=== PATIENT | female | born 1990 | race American Indian/Alaskan Native ===

== ENCOUNTER 2022-01-02 07:29 | Emergency (ER) | payer SELFPAY ==
[2022-01-02 08:02] VITALS: BP 108/65
--- NOTE | 2022-01-02 09:17 | Emergency Department Report ---
ED General Adult HPI - General Chief complaint: Extremity Problem,Nontraumatic Stated complaint: B/L KNEE PAIN CANT BEND HAD KNEE SURGERY Time Seen by Provider: 01/02/22 08:47 Source: patient Mode of arrival: Ambulatory Limitations: No Limitations - History of Present Illness Initial comments: 31-year-old female past medical history bilateral knee surgeries. Reports to the ER with complaints of bilateral knee pain with swelling with limited range of motion. Patient reports running yesterday and doing other errands. Patient reports he is unable to bend her knees fully since this morning. Patient denies any acute injury to her knees recently. No other acute signs or symptoms reported. Severity scale (0 -10): 10 - Related Data Previous Rx's Medication Instructions Recorded Last Taken Type Acetaminophen/Codeine [Tylenol 1 tab PO Q6H PRN 2 Days #8 tab 01/02/22 Unknown Rx /Codeine # 3 tab] methOCARBAMOL [Robaxin TAB] 500 mg PO Q12H PRN 7 Days #14 tab 01/02/22 Unknown Rx ED Review of Systems ROS: Stated complaint: B/L KNEE PAIN CANT BEND HAD KNEE SURGERY Other details as noted in HPI Comment: All other systems reviewed and negative Musculoskeletal: joint swelling (Bilateral knees) ED Past Medical Hx - Past Medical History Previous Medical History?: No - Medications Home Medications: Home Medications Medication Instructions Recorded Confirmed Last Taken Type Acetaminophen/Codeine [Tylenol 1 tab PO Q6H PRN 2 Days #8 tab 01/02/22 Unknown Rx /Codeine # 3 tab] methOCARBAMOL [Robaxin TAB] 500 mg PO Q12H PRN 7 Days #14 tab 01/02/22 Unknown Rx ED Physical Exam - General Limitations: No Limitations General appearance: alert, in no apparent distress - Head Head exam: Present: atraumatic, normocephalic - Eye Eye exam: Present: normal appearance - ENT ENT exam: Present: mucous membranes moist - Neck Neck exam: Present: normal inspection - Respiratory Respiratory exam: Present: normal lung sounds bilaterally. Absent: respiratory distress - Cardiovascular Cardiovascular Exam: Present: regular rate, normal rhythm. Absent: systolic murmur, diastolic murmur, rubs, gallop - GI/Abdominal GI/Abdominal exam: Present: soft, normal bowel sounds - Extremities Exam Extremities exam: Present: normal inspection - Expanded Lower Extremity Exam Left Knee exam: Present: tenderness, swelling. Absent: full ROM, dislocation, erythema Right Knee exam: Present: tenderness, swelling. Absent: full ROM, dislocation, erythema - Back Exam Back exam: Present: normal inspection - Neurological Exam Neurological exam: Present: alert, oriented X3 - Psychiatric Psychiatric exam: Present: normal affect, normal mood - Skin Skin exam: Present: warm, dry, intact, normal color. Absent: rash ED Course Vital Signs 01/02/22 07:54 Temperature 97.8 F Pulse Rate 61 Respiratory 19 Rate Blood Pressure 108/65 [Right] O2 Sat by Pulse 98 Oximetry ED Medical Decision Making - Radiology Data [facility] [address] [place] [address] XRay Report Signed Patient: ANGIE MCCURDY MR#: [id number] 4 : 1990 Acct:[id number] Age/Sex: 31 / F ADM Date: 01/02/22 Loc: ED Attending Dr: Ordering Physician: SHANTELL MACDONALD NP Date of Service: 01/02/22 Procedure(s): XR knee BILAT 3V Accession Number(s): [id number] cc: SHANTELL MACDONALD NP Fluoro Time In Minutes: BILATERAL KNEES, 6 TOTAL VIEWS INDICATION / CLINICAL INFORMATION: knee pain COMPARISON: None available. FINDINGS: BONES / JOINT(S): No acute fracture or subluxation. There is mild tricompartmental osteoarthrosis bilaterally. There is been prior ACL reconstruction on the left. SOFT TISSUES: Left knee effusion. No right knee effusion. ADDITIONAL FINDINGS: None. IMPRESSION: 1. No acute skeletal abnormality. 2. Mild tricompartmental osteoarthrosis. 3. Left knee effusion. Signer Name: Eugene Driver MD Signed: 01/02/2022 10:30 AM Workstation Name: [id number] Transcribed By: MERARI Dictated By: Eugene Driver MD Electronically Authenticated By: Eugene Driver MD Signed Date/Time: 01/02/22 1030 DD/ 1029 TD/TT: - Medical Decision Making 31-year-old female reports to ER bilateral knee pain since yesterday after running. Patient has a history of bilateral knee surgeries. Patient reports no direct injury recently. Patient has not taken anything for pain since yesterday. On physical exam patient does have limited range of motion bilaterally in her knees. Patient has slight swelling bilaterally in her knees. No warmth noted no streaking noted no concerns for septic arthritis in either knee. X-ray of knees showed no acute skeletal abnormalities. Tricompartment osteoarthritis reported. And left knee effusion reportedsee x-ray report for full details. Patient informed of x-ray results. Patient will be referred to primary care services for further evaluation and management Patient agrees with plan of care and verbalized understanding. Patient is stable for discharge no further evaluation is needed at this time. Vital Signs 01/02/22 07:54 Temperature 97.8 F Pulse Rate 61 Respiratory 19 Rate Blood Pressure 108/65 [Right] O2 Sat by Pulse 98 Oximetry Critical care attestation.: If time is entered above; I have spent that time in minutes in the direct care o f this critically ill patient, excluding procedure time. ED Disposition Clinical Impression: Tricompartment osteoarthritis of both knees Bilateral knee pain Qualifiers: Chronicity: acute Qualified Code(s): M25.561 - Pain in right knee Disposition: 01 HOME / SELF CARE / HOMELESS Is pt being admited?: No Condition: Stable Instructions: Acute Knee Pain, Adult, Osteoarthritis, Musculoskeletal Pain Prescriptions: methOCARBAMOL [Robaxin TAB] 500 mg PO Q12H PRN 7 Days #14 tab PRN Reason: muscle pain Acetaminophen/Codeine [Tylenol /Codeine # 3 tab] 1 tab PO Q6H PRN 2 Days #8 tab PRN Reason: Pain , Severe (7-10) Referrals: [facility] [Outside] - 3-5 Days [facility] [place]Outside] - 3-5 Days [facility] [Outside] - 3-5 Days [facility] [Outside] - 3-5 Days [facility] [Outside] - 3-5 Days Time of Disposition: 10:42
--- NOTE | 2022-01-02 10:35 | XRay Report ---
BILATERAL KNEES, 6 TOTAL VIEWS INDICATION / CLINICAL INFORMATION: knee pain COMPARISON: None available. FINDINGS: BONES / JOINT(S): No acute fracture or subluxation. There is mild tricompartmental osteoarthrosis emilee aterally. There is been prior ACL reconstruction on the left. SOFT TISSUES: Left knee effusion. No right knee effusion. ADDITIONAL FINDINGS: None. IMPRESSION: 1. No acute skeletal abnormality. 2. Mild tricompartmental osteoarthrosis. 3. Left knee effusion. Signer Name: Eugene Driver MD Signed: 01/02/2022 10:30 AM Workstation Name: [email or web address]
== END 2022-01-02 11:25 | disposition home or self-care (01) ==
LOC: ED 07:29
DX: M17.0 Bilateral primary osteoarthritis of knee (principal)
CPT/HCPCS: 99283